=== PATIENT | male | born 1990 | race Caucasian/White ===

== ENCOUNTER 2017-10-30 15:21 | Emergency (ER) | payer OTHER ==
[~2017-10-30] VITALS: Ht 175.2 cm; Wt 68.0 kg
[~2017-10-30 15:21] MED LIST: ATARAX25 MG PO; MEDROL DOSEPAK4 MG PO; MOTRIN800 MG PO; Motrin,Rufen800 MG PO; NO DAILY MEDS
[2017-10-30] MEDS ORDERED: NAPROSYN500 MG PO (16:07)
[2017-10-30] MEDS ORDERED: AMOXICILLIN500 M2 PO (16:07)
== END 2017-10-30 16:14 | disposition home or self-care (01) ==
LOC: ED 15:21
DX: K08.89 Other specified disorders of teeth and supporting structures (principal)

== ENCOUNTER 2018-01-12 23:05 | Emergency (ER) | payer OTHER ==
[~2018-01-12] VITALS: Ht 182.8 cm; Wt 65.8 kg
[~2018-01-12 23:05] MED LIST changes: +AMOXICILLIN500 M2 PO; +NAPROSYN500 MG PO
[2018-01-12 23:06] VITALS: BP 120/73
[2018-01-12 23:37] VITALS: BP 120/73
[2018-01-13] VITALS (31 sets, daily range): BP systolic 78–132; BP diastolic 34–98
[2018-01-13 02:07] LABS: BASO % 0.2 % (0.0-1.0); EOS % 0.1 % (1.0-4.0); HEMATOCRIT 40.9 % (42.0-52.0); LYMPH # 1.3 10*3/uL (1.3-4.4); LYMPH % 10.3 % (27.0-41.0); MEAN CELL VOLUME 91.9 fl (80.0-94.0); MEAN CORPUSCULAR HGB 31.5 pg (27.0-31.0); MEAN CORPUSCULAR HGB CONC 34.2 g/dl (33.0-37.0); MEAN PLATELET VOLUME 9.6 fl (9.6-12.3); MONO # 1.1 10*3/uL (0.1-1.0); MONO % 8.7 % (3.0-9.0); NEUT # 10.3 10*3/uL (2.3-7.9); NEUT % 80.4 % (47.0-73.0); PLATELET COUNT AUTOMATED 254 10*3/uL (130-400); RED BLOOD COUNT 4.45 10*6/uL (4.50-5.90); WHITE BLOOD COUNT 12.8 10*3/uL (4.8-10.8)
[2018-01-13 02:19] LABS: ACT PARTIAL THROMBO TIME 25.6 SECONDS (20.8-31.5)
[2018-01-13 02:23] LABS: ALBUMIN 3.9 gm/dl (3.1-4.5); ALKALINE PHOSPHATASE 77 U/L (45-117); BUN 15 mg/dl (7-24); CHLORIDE 103 mmol/L (98-107); CREATININE 1.33 mg/dL (0.70-1.30); LIPASE 137 U/L (73-393); POTASSIUM 4.5 mmol/L (3.5-5.1); SGOT/AST 58 IU/L (3-35); SGPT/ALT 96 U/L (12-78); SODIUM 138 mmol/L (136-145)
[2018-01-13 02:26] LABS: PHOSPHOROUS 3.2 mg/dL (2.5-4.9)
[2018-01-13 02:30] LABS: ACETAMINOPHEN (TYLENOL) < 2.0 ug/ml (10-30); ETHYL ALCOHOL < 3.0 mg/dl (<3)
[2018-01-13 02:31] LABS: THYROID STIM HORMONE (HS) 0.562 uIU/ml (0.358-4.75)
[2018-01-13 02:33] LABS: TROPONIN I 0.302 ng/ml (<0.045)
[2018-01-13 03:42] LABS: BILIRUBIN NEGATIVE (NEGATIVE); BLOOD NEGATIVE (NEGATIVE); CLARITY SL CLOUDY (CLEAR); COLOR YELLOW (YELLOW); GLUCOSE NEGATIVE (NEGATIVE); KETONE NEGATIVE (NEGATIVE); LEUKO ESTERASE NEGATIVE (NEGATIVE); NITRITE NEGATIVE (NEGATIVE); SPECIFIC GRAVITY 1.025 (1.005-1.030); UROBILINOGEN 0.2 E.U./dl (0.2-1.0)
[2018-01-13 03:54] LABS: BACTERIA TRACE
[2018-01-13 04:02] LABS: URINE AMPHETAMINES < 1000 (1000ng/ml); URINE BARBITURATES < 200 (200ng/ml); URINE BENZODIAZEPINES > 200 (200ng/ml); URINE CANNABINOIDS (THC) < 50 (50ng/ml); URINE COCAINE < 300 (300ng/ml); URINE METHADONE < 300 (300ng/ml); URINE OPIATES < 300 (300ng/ml)
[2018-01-13 04:09] LABS: URINE PHENCYCLIDINE < 25 (25ng/ml)
[2018-01-13 05:03] LABS: CKMB 2.2 ng/ml (0.5-3.6)
[2018-01-13 05:06] LABS: TROPONIN I 0.289 ng/ml (<0.045)
== END 2018-01-13 07:00 | disposition short-term general hospital (02) ==
LOC: ED 23:05 → EDHOLD 01-13 01:43
PROVIDERS: Internal Medicine; Physician Assistant
DX: T40.601A Poisoning by unspecified narcotics, accidental (unintentional), initial encounter (principal); R40.20 Unspecified coma; I21.3 ST elevation (STEMI) myocardial infarction of unspecified site; I95.9 Hypotension, unspecified; R79.89 Other specified abnormal findings of blood chemistry; Y92.89 Other specified places as the place of occurrence of the external cause

== ENCOUNTER 2018-06-30 16:43 | Inpatient (IN) | payer MEDICAID ==
[~2018-06-30] VITALS: Ht 175.2 cm; Wt 63.5 kg
[2018-06-30 16:46] VITALS: BP 138/96
[2018-06-30 17:35] LABS: BASO % 0.3 % (0.0-1.0); HEMATOCRIT 41.4 % (42.0-52.0); HEMOGLOBIN 14.4 g/dl (14.0-18.0); LYMPH # 0.8 10*3/uL (1.3-4.4); LYMPH % 8.3 % (27.0-41.0); MEAN CELL VOLUME 85.2 fl (80.0-94.0); MEAN CORPUSCULAR HGB 29.6 pg (27.0-31.0); MEAN CORPUSCULAR HGB CONC 34.8 g/dl (33.0-37.0); MEAN PLATELET VOLUME 9.1 fl (9.6-12.3); MONO # 0.5 10*3/uL (0.1-1.0); MONO % 5.3 % (3.0-9.0); NEUT # 8.6 10*3/uL (2.3-7.9); NEUT % 85.8 % (47.0-73.0); PLATELET COUNT AUTOMATED 252 10*3/uL (130-400); RED BLOOD COUNT 4.86 10*6/uL (4.50-5.90); RED CELL DISTRI WIDTH 12.7 % (0-14.5)
[2018-06-30 17:49] LABS: ALBUMIN 4.5 gm/dl (3.1-4.5); ALKALINE PHOSPHATASE 104 U/L (45-117); BUN 10 mg/dl (7-24); CHLORIDE 106 mmol/L (98-107); CREATININE 0.87 mg/dL (0.70-1.30); POTASSIUM 3.8 mmol/L (3.5-5.1); SGOT/AST 49 IU/L (3-35); SGPT/ALT 92 U/L (12-78); SODIUM 141 mmol/L (136-145); TOTAL PROTEIN 8.8 gm/dL (6.4-8.2)
[2018-06-30 17:56] LABS: ETHYL ALCOHOL < 3.0 mg/dl (<3)
[2018-06-30 20:00] VITALS: BP 133/90
[2018-06-30 21:40] LABS: BILIRUBIN NEGATIVE (NEGATIVE); BLOOD NEGATIVE (NEGATIVE); CLARITY CLEAR (CLEAR); COLOR YELLOW (YELLOW); GLUCOSE NEGATIVE (NEGATIVE); KETONE NEGATIVE (NEGATIVE); LEUKO ESTERASE NEGATIVE (NEGATIVE); NITRITE NEGATIVE (NEGATIVE); SPECIFIC GRAVITY <= 1.005 (1.005-1.030); UROBILINOGEN 0.2 E.U./dl (0.2-1.0)
[2018-06-30 21:46] LABS: BACTERIA TRACE
[2018-06-30 21:49] LABS: URINE AMPHETAMINES < 1000 (1000ng/ml); URINE BARBITURATES < 200 (200ng/ml); URINE BENZODIAZEPINES < 200 (200ng/ml); URINE CANNABINOIDS (THC) < 50 (50ng/ml); URINE COCAINE < 300 (300ng/ml); URINE METHADONE < 300 (300ng/ml); URINE OPIATES < 300 (300ng/ml)
[2018-06-30 21:51] LABS: URINE PHENCYCLIDINE < 25 (25ng/ml)
[2018-07-01 02:06] VITALS: BP 132/88
[2018-07-01 04:00] VITALS: BP 117/73
[2018-07-01 06:22] VITALS: BP 117/73
[2018-07-01 08:00] VITALS: BP 114/76
[2018-07-01 16:00] VITALS: BP 135/92
[2018-07-01 20:00] VITALS: BP 139/90; BP 140/82
[2018-07-02] VITALS: BP 124/81
[2018-07-02 08:00] VITALS: BP 97/67
[2018-07-02 12:00] VITALS: BP 130/94
[2018-07-02 16:00] VITALS: BP 120/84; BP 138/56
[2018-07-02 20:00] VITALS: BP 127/84
[2018-07-03] VITALS: BP 123/81
[2018-07-03 08:00] VITALS: BP 97/67
[2018-07-03] MEDS ORDERED: ZOFRAN 4 MG ED2 TAB PO (10:55)
[2018-07-03] MEDS ORDERED: ATARAX,VISTARIL50 MG PO (10:55)
[2018-08-11] MEDS ORDERED: ATARAX,VISTARIL50 MG PO (12:11)
[2018-08-11] MEDS ORDERED: ZOFRAN4 MG PO (12:11)
== END 2018-07-03 13:23 | disposition home or self-care (01) | DRG 897 ==
LOC: ED 16:43 → 4E 17:28 → EDHOLD 17:28 → 4E 17:59
PROVIDERS: Physician Assistant
DX: F11.23 Opioid dependence with withdrawal (principal); F41.9 Anxiety disorder, unspecified; I10 Essential (primary) hypertension; F14.10 Cocaine abuse, uncomplicated; F19.90 Other psychoactive substance use, unspecified, uncomplicated; F13.10 Sedative, hypnotic or anxiolytic abuse, uncomplicated; R74.0 Nonspecific elevation of levels of transaminase and lactic acid dehydrogenase [LDH]; F17.210 Nicotine dependence, cigarettes, uncomplicated; Z82.49 Family history of ischemic heart disease and other diseases of the circulatory system; I25.2 Old myocardial infarction; Z71.6 Tobacco abuse counseling

== ENCOUNTER 2019-01-28 19:15 | Emergency (ER) | payer OTHER ==
[~2019-01-28] VITALS: Ht 175.2 cm; Wt 63.5 kg
[~2019-01-28 19:15] MED LIST changes: +ATARAX,VISTARIL50 MG PO; +ZOFRAN 4 MG ED2 TAB PO; +ZOFRAN4 MG PO
[2019-01-28] MEDS ORDERED: CEPHALEXIN500 M1 PO (21:39)
== END 2019-01-28 21:36 | disposition home or self-care (01) ==
LOC: ED 19:15
DX: S61.012A Laceration without foreign body of left thumb without damage to nail, initial encounter (principal); F17.200 Nicotine dependence, unspecified, uncomplicated; W26.8XXA Contact with other sharp object(s), not elsewhere classified, initial encounter; Y93.89 Activity, other specified; Y92.098 Other place in other non-institutional residence as the place of occurrence of the external cause; Y99.9 Unspecified external cause status

== ENCOUNTER 2019-07-27 13:31 | Emergency (ER) | payer OTHER ==
[~2019-07-27] VITALS: Ht 175.2 cm; Wt 63.5 kg
[~2019-07-27 13:31] MED LIST changes: +CEPHALEXIN500 M1 PO
[2019-07-27] MEDS ORDERED: SEPTDS PO (15:20)
== END 2019-07-27 16:49 | disposition home or self-care (01) ==
LOC: ED 13:31
DX: S61.213A Laceration without foreign body of left middle finger without damage to nail, initial encounter (principal); F17.220 Nicotine dependence, chewing tobacco, uncomplicated; W45.8XXA Other foreign body or object entering through skin, initial encounter; Y93.89 Activity, other specified; Y92.89 Other specified places as the place of occurrence of the external cause; Y99.8 Other external cause status

== ENCOUNTER 2021-06-30 12:23 | Emergency (ER) | payer SELFPAY ==
[~2021-06-30] VITALS: Ht 175.2 cm; Wt 65.8 kg
[~2021-06-30 12:23] MED LIST changes: +SEPTDS PO
[2021-06-30] MEDS ORDERED: IBUPROFEN600 MG PO (15:30)
[2021-06-30] MEDS ORDERED: Tobrex Ophth S2.5 ML OPH (15:30)
== END 2021-06-30 15:51 | disposition home or self-care (01) ==
LOC: ED 12:23
DX: T15.02XA Foreign body in cornea, left eye, initial encounter (principal); X58.XXXA Exposure to other specified factors, initial encounter; Y93.89 Activity, other specified; Y92.89 Other specified places as the place of occurrence of the external cause; Y99.8 Other external cause status

== ENCOUNTER 2022-01-09 18:21 | Emergency (ER) | payer SELFPAY ==
[~2022-01-09] VITALS: Wt 68.0 kg
[~2022-01-09 18:21] MED LIST changes: +IBUPROFEN600 MG PO; +Tobrex Ophth S2.5 ML OPH
== END 2022-01-09 20:03 | disposition home or self-care (01) ==
LOC: ED 18:21
DX: T40.1X1A Poisoning by heroin, accidental (unintentional), initial encounter (principal); F17.200 Nicotine dependence, unspecified, uncomplicated; Y92.89 Other specified places as the place of occurrence of the external cause

== ENCOUNTER 2022-11-27 11:14 | Emergency (ER) | payer SELFPAY | END 2022-11-27 12:38 | disposition left against medical advice (07) | LOC: ED 11:14 | DX: Z53.21 Procedure and treatment not carried out due to patient leaving prior to being seen by health care provider (principal) ==